=== PATIENT | female | born 1990 | race Caucasian/White ===

== ENCOUNTER 2019-05-06 17:30 | Emergency (ER) | payer MEDICAID ==
[~2019-05-06] VITALS: Ht 175.3 cm; Wt 65.9 kg
[~2019-05-06 17:30] MED LIST: ACETAMINOPHEN325 MG PO; FLINTSTONE1 TAB.CHEW PO; IBUPROFEN600 MG PO; PERCOCET 5-3251 TAB PO
[2019-05-06 17:35] VITALS: Ht 175.3 cm; Wt 65.9 kg
[2019-05-06] MEDS ORDERED: PENICILLIN V P500 MG PO (18:49)
[2019-05-06 18:57] VITALS: BP 134/88
== END 2019-05-06 18:58 | disposition home or self-care (01) ==
LOC: D.ER 17:30
DX: K04.7 Periapical abscess without sinus (principal); R60.9 Edema, unspecified

== ENCOUNTER 2020-09-27 12:16 | Emergency (ER) | payer MEDICAID ==
[~2020-09-27] VITALS: Ht 175.3 cm; Wt 65.9 kg
[~2020-09-27 12:16] MED LIST changes: +NORCO 7.5-3251 EACH PO; +PENICILLIN V P500 MG PO
[2020-09-27 12:21] VITALS: BP 125/61; Ht 175.3 cm; Wt 65.9 kg
[2020-09-27 12:53] LABS: BASOPHILS 0.9 % (0-2); EOSINOPHILS 1.5 % (0-7); HEMATOCRIT 29.9 % (36.0-48.0); HEMOGLOBIN 9.2 g/dL (12-16); LYMPHOCYTES 30.8 % (15-50); MCHC 30.6 g/dL (31.0-37.0); MCV 60.2 fL (80.0-100.0); MEAN PLATELET VOLUME 8.7 fL (7.4-10.4); MONOCYTES 11.7 % (2-11); NEUTROPHILS 55.1 % (40-80); RBC 4.97 10x6/uL (4.00-5.40); RDW 19.2 % (11.5-14.5); WBC 3.1 10x3/uL (4.8-10.8)
[2020-09-27 13:01] LABS: MCH 18.5 pg (26.0-34.0); PLATELET COUNT 260 10x3/uL (130-400)
[2020-09-27 13:06] LABS: CALC OSMOLALITY 274 mosm/kg (275-300); CALCIUM 8.4 mg/dL (8.5-10.1); CARBON DIOXIDE 27.9 mmol/L (21.0-32.0); CHLORIDE - SERUM 103 mmol/L (98-107); CREATININE - SERUM 0.6 mg/dL (0.6-1.3); GLUCOSE 94 mg/dL (74-106); POTASSIUM - SERUM 3.3 mmol/L (3.5-5.1); SODIUM 138 mmol/L (136-145); UREA NITROGEN 9 mg/dL (7-18); eGFR NON AFRICAN AMERICAN > 90 mL/min (90-120)
[2020-09-27 13:12] LABS: ALBUMIN 4.1 g/dL (3.4-5.0); ALKALINE PHOSPHATASE 82 U/L (30-120); ALT (SGPT) 31 U/L (10-68); AMYLASE - SERUM 35 U/L (25-115); BILIRUBIN - TOTAL 0.22 mg/dL (0.2-1.3); LIPASE 78 U/L (73-393); PROTEIN - SERUM 8.1 g/dL (6.4-8.2)
[2020-09-27 13:21] LABS: HCG URINE NEGATIVE (NEGATIVE)
[2020-09-27 13:28] LABS: BILIRUBIN NEGATIVE (NEGATIVE); KETONE NEGATIVE (NEGATIVE); NITRITE NEGATIVE (NEGATIVE); UROBILINOGEN NORMAL mg/dL (< 2); WHITE CELLS - URINE 0-5 HPF (0-4)
[2020-09-27 13:29] LABS: BACTERIA RARE HPF (NONE SEEN); SQUAMOUS EPITHELIAL 0-5 HPF (0-4)
[2020-09-27 14:14] LABS: UDS - AMPHET POSITIVE QUAL (NEGATIVE); UDS - BARB NEGATIVE QUAL (NEGATIVE); UDS - BENZO NEGATIVE QUAL (NEGATIVE); UDS - COCAINE NEGATIVE QUAL (NEGATIVE); UDS - OPIATE POSITIVE QUAL (NEGATIVE); UDS - PCP NEGATIVE QUAL (NEGATIVE); UDS - THC NEGATIVE QUAL (NEGATIVE)
[2020-09-27] MEDS ORDERED: LEVSIN/ANASP0.125 MG PO (15:29)
[2020-09-27] MEDS ORDERED: IBUPROFEN800 MG PO (15:29)
[2020-09-27] MEDS ORDERED: ACETAMINOPHEN500 M1 PO (15:29)
[2020-09-27] MEDS ORDERED: CYCLOBENZAPRINE10 MG PO (15:29)
[2020-09-27] MEDS ORDERED: CIPRO500 MG PO (15:33)
== END 2020-09-27 15:55 | disposition other institution (70) ==
LOC: D.ER 12:16
PROVIDERS: Family Medicine
DX: R10.30 Lower abdominal pain, unspecified (principal); R11.0 Nausea; N39.0 Urinary tract infection, site not specified; N93.9 Abnormal uterine and vaginal bleeding, unspecified